=== PATIENT | female | born 1970 | race Caucasian/White ===

== ENCOUNTER → 2020-03-27 12:13 | Outpatient (BNVA) | payer OTHER, SELFPAY | PROVIDERS: PCP Nurse Practitioner Adult Health; Visit Provider Physician Assistant Medical | DX: Z13.89 Encounter for screening for other disorder (principal) | CPT/HCPCS: 73564; 99203 ==

== ENCOUNTER → 2021-07-22 11:32 | Outpatient (BNVA) | payer OTHER, SELFPAY | PROVIDERS: PCP Nurse Practitioner Adult Health; Visit Provider Physician Assistant Medical | DX: S60.211A Contusion of right wrist, initial encounter (principal); W03.XXXA Other fall on same level due to collision with another person, initial encounter | CPT/HCPCS: 29125; 73110; 99203 ==

== ENCOUNTER → 2021-08-18 08:50 | Outpatient (BNVA) | payer OTHER, SELFPAY | PROVIDERS: PCP Nurse Practitioner Adult Health; Visit Provider Physician Assistant Medical | DX: S00.83XA Contusion of other part of head, initial encounter (principal); S80.02XA Contusion of left knee, initial encounter; Y04.2XXA Assault by strike against or bumped into by another person, initial encounter | CPT/HCPCS: 73564; 99203 ==

== ENCOUNTER → 2021-08-21 07:59 | Outpatient (BNVA) | payer OTHER, SELFPAY | PROVIDERS: PCP Nurse Practitioner Adult Health; Visit Provider Physician Assistant Medical | DX: S00.83XA Contusion of other part of head, initial encounter (principal); S80.02XA Contusion of left knee, initial encounter; Y04.8XXA Assault by other bodily force, initial encounter | CPT/HCPCS: 99213 ==

== ENCOUNTER → 2021-08-25 13:27 | Outpatient (BNVA) | payer OTHER, SELFPAY | PROVIDERS: PCP Nurse Practitioner Adult Health; Visit Provider Physician Assistant Medical | DX: S00.83XA Contusion of other part of head, initial encounter (principal); S80.02XD Contusion of left knee, subsequent encounter; S39.012A Strain of muscle, fascia and tendon of lower back, initial encounter; Y04.8XXD Assault by other bodily force, subsequent encounter | CPT/HCPCS: 99213 ==

== ENCOUNTER → 2021-09-08 14:57 | Outpatient (BNVA) | payer OTHER, SELFPAY | PROVIDERS: PCP Nurse Practitioner Adult Health; Visit Provider Physician Assistant Medical | DX: S80.02XA Contusion of left knee, initial encounter (principal); S39.012A Strain of muscle, fascia and tendon of lower back, initial encounter; Y04.8XXA Assault by other bodily force, initial encounter | CPT/HCPCS: 99213 ==

== ENCOUNTER → 2021-09-23 14:48 | Outpatient (BNVA) | payer OTHER, SELFPAY | PROVIDERS: PCP Nurse Practitioner Adult Health; Visit Provider Physician Assistant Medical | DX: S80.02XD Contusion of left knee, subsequent encounter (principal); S39.012D Strain of muscle, fascia and tendon of lower back, subsequent encounter; X58.XXXD Exposure to other specified factors, subsequent encounter; M23.92 Unspecified internal derangement of left knee | CPT/HCPCS: 99213 ==

== ENCOUNTER → 2021-10-14 14:53 | Outpatient (BNVA) | payer OTHER, SELFPAY | PROVIDERS: PCP Nurse Practitioner Adult Health; Visit Provider Physician Assistant Medical | DX: S80.02XD Contusion of left knee, subsequent encounter (principal); S39.012D Strain of muscle, fascia and tendon of lower back, subsequent encounter; X58.XXXD Exposure to other specified factors, subsequent encounter | CPT/HCPCS: 99213 ==

== ENCOUNTER 2021-10-23 16:09 | Outpatient (REF) | payer OTHER, SELFPAY ==
--- NOTE | ~2021-10-23 | MR_ITS ---
EXAMINATION: MR KNEE WITHOUT CONTRAST, LEFT CLINICAL INFORMATION: Left knee pain COMPARISON: Radiographs 08/28/2021 TECHNIQUE: MRI of the knee without contrast was performed using routine sequences on a high-field scanner. FINDINGS: MENISCI: Medial Meniscus: Chronic degenerative inner margin tearing/attritional wear of the posterior horn. Lateral Meniscus: Intact LIGAMENTS: Cruciate: Intact Collateral: Intact EXTENSOR MECHANISM: Intact ARTICULAR CARTILAGE/BONE: Patellofemoral Compartment: Minimal articular cartilage irregularity along the medial patellar facet and the medial trochlea inferiorly. Medial Compartment: Mild cartilage thinning and surface irregularity throughout the weightbearing femoral condyle. Small marginal osteophytes. Lateral Compartment: Focal cartilage irregularity of the tibia posteriorly. JOINT FLUID AND BURSAE: Moderate joint effusion. Trace Francis's cyst. MR/MR knee LT wo con IMPRESSION: Chronic degenerative tearing/attritional wear along the inner margin of the posterior horn of the medial meniscus. Menisci appear otherwise intact. Mild tricompartmental osteoarthritis. Moderate joint effusion.
== END 2021-10-23 16:10 | disposition home or self-care (01) ==
LOC: HO.MRI 16:09
PROVIDERS: Visit Provider Internal Medicine
DX: M25.562 Pain in left knee (principal); Z91.81 History of falling
CPT/HCPCS: 73721

== ENCOUNTER 2021-11-18 07:40 | Outpatient (REF) | payer OTHER, SELFPAY ==
--- NOTE | ~2021-11-18 | XR_ITS ---
EXAMINATION: XR KNEE AP STANDING CLINICAL INFORMATION: Pain. COMPARISON: Radiograph of the left knee dated from 08/18/2021. MR of the left knee dated from 10/23/2021. TECHNIQUE: AP bilateral standing view of the knees was obtained. FINDINGS: No acute fracture. Mild joint space narrowing and subcortical sclerosis of the medial and lateral compartments of both knees. No erosions or chondrocalcinosis. No significant soft tissue abnormality. XR/XR knee standing BI IMPRESSION: Mild degenerative osteoarthritis bilaterally. No acute fractures.
== END 2021-11-18 07:41 | disposition home or self-care (01) ==
LOC: HO.HOSX 07:40
PROVIDERS: Visit Provider Physician Assistant
DX: M17.12 Unilateral primary osteoarthritis, left knee (principal)
CPT/HCPCS: 20610; 73565; 99202; J1020